=== PATIENT | female | born 1995 | race Two or more races ===

== ENCOUNTER 2017-02-07 18:31 | Emergency (ER) | payer OTHER ==
[2017-02-07] MEDS ORDERED: IBUPROFEN 600 MG TABLET PO ONE (19:50)
[2017-02-07] MEDS ORDERED: CYCLOBENZAPRINE HCL 10 MG TABLET PO ONE (19:50)
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
[2017-02-07 21:47] VITALS: BP 117/74
== END 2017-02-07 21:43 | disposition home or self-care (01) ==
LOC: ER 18:31
DX: S80.02XA Contusion of left knee, initial encounter (principal); S16.1XXA Strain of muscle, fascia and tendon at neck level, initial encounter; S20.219A Contusion of unspecified front wall of thorax, initial encounter; M25.562 Pain in left knee; M54.2 Cervicalgia; R07.9 Chest pain, unspecified; V87.7XXA Person injured in collision between other specified motor vehicles (traffic), initial encounter
CPT/HCPCS: 72125; 99284

== ENCOUNTER 2017-09-17 16:19 | Emergency (ER) | payer OTHER ==
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
[2017-09-17] MEDS ORDERED: ACETAMINOPHEN 325 MG TABLET PO ONE (17:34)
[2017-09-17 18:02] VITALS: BP 110/66
== END 2017-09-17 18:02 | disposition home or self-care (01) ==
LOC: ER 16:19
DX: S16.1XXA Strain of muscle, fascia and tendon at neck level, initial encounter (principal); M54.2 Cervicalgia; V89.2XXA Person injured in unspecified motor-vehicle accident, traffic, initial encounter; J45.909 Unspecified asthma, uncomplicated
CPT/HCPCS: 72125; 99284